=== PATIENT | male | born 1980 | race Caucasian/White ===

== ENCOUNTER 2022-10-30 20:28 | Emergency (ER) | payer OTHER ==
[~2022-10-30] VITALS: Ht 177.8 cm; Wt 78.5 kg
[2022-10-30] MEDS ORDERED: ALPR0.255 PO (21:15)
[2022-10-30 21:21] VITALS: BP 155/90; TEMP 98.2; O2SAT 98
== END 2022-10-30 21:21 | disposition home or self-care (01) ==
LOC: ER 20:35
DX: G44.209 Tension-type headache, unspecified, not intractable (principal); R07.89 Other chest pain
CPT/HCPCS: 93005; A4663